=== PATIENT | male | born 1950 | race Caucasian/White ===

== ENCOUNTER 2025-03-18 06:17 | Day surgery (SDC) | payer OTHER ==
[2025-02-25 10:33] VITALS: BP 129/92
[~2025-03-18] VITALS: Ht 198.1 cm; Wt 118.7 kg
[2025-03-18] VITALS (14 sets, daily range): BP systolic 100–148; BP diastolic 64–99
[~2025-03-18 06:17] MED LIST: AMLO5 PO; ASPI81CH PO; ATOR20 PO; BIOFLEX PO; CELEXA40 M1 PO; DOC250 PO; ELIQUIS5 M2 PO; LISI20 PO; MULVITA PO; OMEP20ER PO; SILD25T PO; SOTO80 PO
[2025-03-18] MEDS ORDERED: Tranexamic Acid 100 ML IV SCH (06:20)
[2025-03-18] MEDS ORDERED: Ropivacaine 0.5% HCl/Pf 123.125 MG,EPINEPHrine HCL 0.25 MG,Ketorolac Tromethamine 15 MG... INFIL SCH (06:20)
[2025-03-18] MEDS ORDERED: Chlorhexidine Mouth Care 15 ML UDC MT SCH (06:20)
[2025-03-18] MEDS ORDERED: CeFAZolin Sodium 2,000 MG in NS 100 ML IV SCH ×2 (06:20→16:00)
[2025-03-18] MEDS ORDERED: Dexamethasone Sod Phos 10 MG/ML 1ML VIAL ONE (06:23)
[2025-03-18] MEDS ORDERED: Ondansetron HCl 2 MG / ML 2ML Vial ONE (06:23)
[2025-03-18] MEDS ORDERED: FentaNYL Citrate 50 MCG/ML 2 ML Injection ONE (06:24)
[2025-03-18] MEDS ORDERED: Midazolam HCl 1MG / ML 2ML Vial ONE (06:24)
[2025-03-18] MEDS ORDERED: Bupivacaine 0.5% HCl 5 MG/ML 30MLVIAL ONE (06:24)
[2025-03-18] MEDS ORDERED: FentaNYL Citrate 50 MCG/ML 2 ML Injection IV PRN ×3 (06:45)
[2025-03-18] MEDS ORDERED: Metoclopramide HCl 5MG / ML 2ML Vial IV PRN ×2 (06:45→07:45)
[2025-03-18] MEDS ORDERED: Albuterol 2.5 MG/3 ML VIAL INH PRN (06:45)
[2025-03-18] MEDS ORDERED: Ondansetron HCl 2 MG / ML 2ML Vial IV PRN ×2 (06:50→07:45)
[2025-03-18] MEDS ORDERED: Midazolam HCl 1MG / ML 2ML Vial IV ONE (07:00)
--- NOTE | 2025-03-18 07:35 | NUR ---
Ambulatory in Day SurgeryPre-Op teaching done. Pt verbalizes understanding. Patient confirms NPO status and agrees with scheduled surgery. Patient reports completing Chlorhexadine shower X2 prior to admission to hospital.History, Chart, Medications and Allergies reviewed before start of procedure. Patient reports completing Chlorhexadine shower X2 prior to admission to hospital.
[2025-03-18] MEDS ORDERED: HYDROmorphone HCl/Pf 1MG SYR IV PRN (07:50)
[2025-03-18] MEDS ORDERED: Magnesium Hydroxide Conc 10 ML UDC PO PRN (07:50)
[2025-03-18] MEDS ORDERED: Ketorolac Tromethamine 15mg Vial IV SCH (12:00)
[2025-03-18] MEDS ORDERED: ACET500 PO (12:20)
[2025-03-18] MEDS ORDERED: DOCU100 PO (12:20)
[2025-03-18] MEDS ORDERED: OXYC5 PO (12:21)
--- NOTE | 2025-03-18 14:48 | NUR ---
PT DISCHARGED TO HOME WITH . DISCHARGE INSTRUCTIONS PROVIDED AND EDUCATED ON AT TIME OF DISCHARGE. ALL VALUABLES RETURNED AND EDUCATED ON AT TIME OF DISCHARGE.
== END 2025-03-18 14:45 | disposition home or self-care (01) ==
LOC: ORSCMMR 06:17 → SURS 10:03 → ORD 11:30 → ORSCMMR 11:30 → ORD 13:30 → ORSCMMR 14:45
PROVIDERS: Orthopaedic Surgery
PROC: 0SRC0JA Replacement of Right Knee Joint with Synthetic Substitute, Uncemented, Open Approach (ICD-10-PCS; principal; 2025-03-18 07:30)
DX: M17.11 Unilateral primary osteoarthritis, right knee (principal); I10 Essential (primary) hypertension; I48.0 Paroxysmal atrial fibrillation; Z79.01 Long term (current) use of anticoagulants; E78.5 Hyperlipidemia, unspecified; G47.33 Obstructive sleep apnea (adult) (pediatric); J44.9 Chronic obstructive pulmonary disease, unspecified; E66.9 Obesity, unspecified; Z68.33 Body mass index [BMI] 33.0-33.9, adult; Z79.899 Other long term (current) drug therapy; Z87.891 Personal history of nicotine dependence
CPT/HCPCS: 27447; 0055T; 73560-RT; 97110; 97116; 97161; 97530; A9270; C1713; C1776; J0166; J0690; J0735; J1100; J1171; J1885; J2250; J2405; J2704; J2795; J3010; J7120